=== PATIENT | male | born 1980 | race Caucasian/White ===

== ENCOUNTER → 2021-02-20 | Outpatient (REF) | payer BC | LOC: M SMT 13:28 | PROVIDERS: ATTEND Urology | DX: N41.1 Chronic prostatitis (principal) ==

== ENCOUNTER → 2021-06-05 | Outpatient (REF) | payer BC | LOC: M LAB REF 15:58 | PROVIDERS: ATTEND Physician Assistant | DX: J06.9 Acute upper respiratory infection, unspecified (principal) ==

== ENCOUNTER 2024-02-19 15:25 | Emergency (ER) | payer BC ==
[~2024-02-19] VITALS: Ht 182.9 cm; Wt 102.3 kg
[2024-02-19] MEDS: ASPIRIN 81MG CHEW TABLET PO ONE (17:25)
[2024-02-19] MEDS: NITROGLYCERIN 0.4MG SUBL TABLET SL PRN (17:44)
[2024-02-19 17:45] VITALS: TEMP 98.5
[2024-02-19 18:08] LABS: BASO # 0.1 10^3/uL (0.0-0.2); BASO % 0.3 % (0.0-1.0); EOS % 0.1 % (0.0-3.0); HEMATOCRIT 47.2 % (42.0-52.0); HEMOGLOBIN 15.8 g/dl (13.5-17.5); LYMPH # 1.2 10^3/uL (1.5-5.0); MEAN CORPUSCULAR HGB CONC 33.5 g/dl (32.0-36.5); MEAN CORPUSCULAR VOLUME 89.7 fl (80.0-96.0); MONO # 0.6 10^3/uL (0.0-0.8); MONO % 3.1 % (2.0-8.0); NEUTROPHILS # 17.2 10^3/uL (1.5-8.5); PLATELET COUNT, AUTOMATED 389 10^3/uL (150-450); RED BLOOD COUNT 5.26 10^6/uL (4.30-6.10); WHITE BLOOD COUNT 19.1 10^3/uL (4.0-10.0)
[2024-02-19 18:27] LABS: D-DIMER QUANT < 0.27 ug/mL (<0.5); INR 0.96; PARTIAL THROMBOPLASTIN TIME 24.9 SECONDS (24.8-34.2); PROTHROMBIN TIME 12.5 SECONDS (12.5-14.5)
[2024-02-19 18:30] VITALS: BP 175/103; O2SAT 96
[2024-02-19 18:43] LABS: ALBUMIN 4.4 G/DL (3.2-5.2); ALKALINE PHOSPHATASE 58 U/L (46-116); ALT/SGPT 19 U/L (7.0-40); AST/SGOT 12 U/L (<34); BILIRUBIN,DIRECT 0.1 MG/DL (<0.4); BILIRUBIN,TOTAL 0.4 MG/DL (0.3-1.2); BLOOD UREA NITROGEN 12 MG/DL (9-23); CALCIUM LEVEL 9.5 MG/DL (8.5-10.1); CARBON DIOXIDE LEVEL 28 MMOL/L (20-31); CHLORIDE LEVEL 106 MMOL/L (98-107); CK-MB VALUE MASS < 1.0 NG/ML (<3.6); CREATININE FOR GFR 0.78 MG/DL (0.70-1.30); GLOMERULAR FILTRATION RATE > 60.0 (>60); GLUCOSE, FASTING 115 MG/DL (60-100); POTASSIUM SERUM 4.4 MMOL/L (3.5-5.1); SODIUM LEVEL 138 MMOL/L (136-145)
[2024-02-19 18:45] LABS: FREE T4 1.56 NG/DL (0.89-1.76); THYROID STIMULATING HORMONE 4.573 uIU/ML (0.55-4.78)
[2024-02-19 18:48] LABS: CPK CREATINE PHOSPHOKINASE 116 U/L (46-171); MB/CK RELATIVE INDEX 0.86 (< OR =4)
[2024-02-19 19:18] LABS: CK-MB VALUE MASS < 1.0 NG/ML (<3.6)
[2024-02-19 19:19] LABS: CPK CREATINE PHOSPHOKINASE 97 U/L (46-171); MB/CK RELATIVE INDEX 1.03 (< OR =4)
== END 2024-02-19 20:05 | disposition left against medical advice (07) ==
LOC: M ED 15:25
DX: R07.9 Chest pain, unspecified (principal); Z87.891 Personal history of nicotine dependence; Z53.9 Procedure and treatment not carried out, unspecified reason